=== PATIENT | male | born 1990 | race Caucasian/White ===

== ENCOUNTER 2017-05-28 16:31 | Inpatient (IN) | payer OTHER ==
[~2017-05-28] VITALS: Ht 167.6 cm; Wt 68.0 kg
--- NOTE | 2017-05-28 20:45 | NUR ---
Pre-Admission Patient seen in intake office. Patient does not appear intoxicated but verbalizes feelings of nervousness. He is noted stable to continue with admission assessment. Vital signs rendered and noted to be 126/81, 64, 16, 99%, 98.0, 0/10. Patient verbalizes no known allergies. No home medications noted with patient. Will continue with admission process to unit.
[2017-05-28 21:00] VITALS: BP 126/81
--- NOTE | 2017-05-28 21:00 | NUR ---
Admission Patient is a 46 year old male from [place], [place] admitted to [facility] to receive treatment for his ETOH Dependence. Patient was escorted on to unit by male LOAN ORIGINATOR where body check was rendered. Skin noted intact. Patient is able to provide Urine drug screen upon arrival to unit. Patient verbalizes no known allergies. Height noted as 56 and weight noted as 150lbs. Patient is ambulatory with no assistance needed. Breathing is even and non labored with no signs of SOB. No pain or discomfort verbalized. BUE and BLE noted to be WNL with no edema noted. Lung sounds clear with no cough noted. Bowel sounds are active in all 4 quadrants with LBM noted 05/27/17. Patient verbalizes past medical history of Depression and ADHD. Patient explains "I was diagnosed when I was in the sixth grade and placed on medication but my father was against it so he took me off." No Home medications noted or verbalized by patient. No history of Seizure noted. Patient denies any suicidal ideations. He describes his usage as: 1. ETOH- Vodka, since the age of [age] years old but became dependent 1 year ago, Drinking 3-4 drinks PO daily with last drink noted 05/27/17 drinking 2 beers. Patient states I know I have to stop myself after 3-4 drinks because then its just really bad and I wont stop. 2. Marijuana, x1 use only. Patient states "I knew I was coming here so I smoked but thats because I cant do it while I work. 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 This is patients first time in treatment and is supported by close family and friends. Admission CIWA noted to be 1. All information reviewed with Dr. Patricio Labs to be rendered. PRN medications available for increased signs and symptoms. Will continue plan of care as ordered.
[2017-05-28 21:28] LABS: *AMPHETAMINE, URINE NEGATIVE (NEGATIVE); *BARBITURATE, URINE NEGATIVE (NEGATIVE); *CANNABINOID, URINE POSITIVE (NEGATIVE); *COCCAINE, URINE NEGATIVE (NEGATIVE); *OPIATE, URINE NEGATIVE (NEGATIVE); *PHENCYCLIDINE SCREEN,URINE NEGATIVE (NEGATIVE)
[2017-05-28 21:46] LABS: BASOPHILS # (AUTO) 0.1 K/uL (0.0-8.0); BASOPHILS % (AUTO) 1.3 % (0.0-2.0); EOSINOPHILS # (AUTO) 0.2 K/uL (0.0-0.7); EOSINOPHILS % (AUTO) 2.4 % (0.0-7.0); HEMATOCRIT 51.8 % (40-50); HEMOGLOBIN 17.4 G/DL (14.0-18.0); LYMPHOCYTES # (AUTO) 1.9 K/UL (0.8-4.8); LYMPHOCYTES % (AUTO) 30.1 % (20.5-51.5); MEAN CORPUSCULAR HEMOGLOBIN 32.3 UUG (27.0-31.0); MEAN CORPUSCULAR HGB CONC 34 g/dL (32.0-37.0); MEAN CORPUSCULAR VOLUME 95.8 FL (82.0-92.0); MONOCYTES # (AUTO) 0.6 K/UL (0.1-1.30); MONOCYTES % (AUTO) 10.2 % (0.0-11.0); NEUTROPHILS # (AUTO) 3.5 K/UL (1.8-8.9); PLATELET COUNT (AUTO) 264 K/UL (150-450); RED BLOOD CELL COUNT(AUTO) 5.41 MIL/UL (4.7-6.1); WHITE BLOOD COUNT (AUTO) 6.4 K/UL (4.0-11.2)
[2017-05-28 21:53] LABS: ALANINE AMINOTRANSFERASE 40 U/L (16-63); ALKALINE PHOSPHATASE 71 U/L (50-136); ASPARTATE AMINOTRANSFERASE 25 U/L (15-37); BILIRUBIN,TOTAL 0.7 mg/dL (0.2-1.0); CARBON DIOXIDE 30 mmol/L (21-32); CHLORIDE 104 mmol/L (98-107); CREATININE 0.9 mg/dL (0.6-1.3); ETHANOL < 3 MG/DL (0-0); GLUCOSE 94 mg/dL (74-106); MAGNESIUM 2.3 mg/dL (1.8-2.4); POTASSIUM 4.1 mmol/L (3.5-5.1); TOTAL PROTEIN, SERUM 7.9 g/dL (6.4-8.2); UREA NITROGEN, BLOOD 11 mg/dL (7-18)
--- NOTE | 2017-05-28 22:45 | NUR ---
PRN Medication Administration Patient verbalized inability of falling asleep. PRN Benadryl administered as per order. Will continue to monitor.
--- NOTE | 2017-05-28 23:30 | NUR ---
PRN Medication Reassessment Patient was given PRN Benadryl for in ability of falling asleep. Patient noted to be sleeping in bed with no complications noted. PRN Benadryl noted to be effective. Will continue to monitor.
[2017-05-29] VITALS: BP 113/51
[2017-05-29 04:00] VITALS: BP 112/53
--- NOTE | 2017-05-29 07:06 | NUR ---
End of shift Patient is in bed sleeping. Breathing even and non labored. No signs of pain or discomfort noted. Patient is a 26 year old male admitted on 05/29/17 for ETOH Dependence under the care of Dr. Patricio. Patient was placed on PRN medications for increased signs and symptoms of withdrawal. No known allergies, wishes to be full code, following a regular diet, placed on fall and seizure precautions, and skin noted intact. Admission CIWA noted to be 1. Patient was given PRN Benadryl for inability of falling asleep. Patient noted to sleep a total of 6 hours. All needs attended to promptly. Will endorse to continue plan of care as ordered.
--- NOTE | 2017-05-29 07:30 | NUR ---
START OF SHIFT Client is a 26 yo male admitted for withdrawal from alcohol. Last CIWA 1. Client is in room, a/o x 4, he present with depressed mood, flat affect. Client stated, "I was not able to sleep." Call light within reach, side rails up x2, bed locked and in low position. Endorsed to incoming nurse.
[2017-05-29 08:54] VITALS: BP 122/71
--- NOTE | 2017-05-29 09:30 | NUR ---
Client refused TB test, MD and Charge Nurse notified
[2017-05-29 12:55] VITALS: BP 127/76
[2017-05-29 16:55] VITALS: BP 127/79
--- NOTE | 2017-05-29 19:10 | NUR ---
Start of Shift Patient is in bed awake, alert and verbaly repsonsive. Breathing even and non labored. No signs of pain or discomfort noted. Patient is a 26 year old male admitted on 05/29/17 for ETOH Dependence under the care of Dr. Patricio. No known allergies, full code, following a regular diet, placed on fall and seizure precautions, and skin noted intact. Per endorsement, patient is set for discharge tomorrow 05/30/17. No PRN medications administered. Last noted CIWA 2. All needs attended to promptly. Will continue plan of care as ordered.
--- NOTE | 2017-05-29 19:34 | NUR ---
END OF SHIFT Client is a 26 yo male admitted for withdrawal from alcohol. Last CIWA 2. He is scheduled for discharge tomorrow. Client is in room, a/o x 4, he continues to present with depressed mood, flat affect. Client was compliant with 2/3 of group therapy. Adequate intake and output. Safety measures in place, call light within reach, side rails up x2, bed locked and in low position. Endorsed to incoming nurse.
[2017-05-29 20:22] VITALS: BP 136/86
--- NOTE | 2017-05-29 23:55 | NUR ---
PRN BENADRYL Patient complained of insomnia and requested for PRN Benadryl. Medication given and tolerated well. Will reassess within 1 hour. Will continue to monitor.
[2017-05-30 00:20] VITALS: BP 134/92
--- NOTE | 2017-05-30 00:45 | NUR ---
PRN BENADRYL REASSESSMENT Medication effective. Patient is resting well in bed. No adverse side effects noted, patient's breathing is even and unlabored. Will continue to monitor.
[2017-05-30 04:53] VITALS: BP 124/83
[2017-05-30 06:08] LABS: HEPATITIS B SURFACE AG Negative (Negative)
--- NOTE | 2017-05-30 07:32 | NUR ---
End of Shift Patient is in bed sleeping. Breathing even and non labored. No signs of pain or discomfort noted. Patient is a 26 year old male admitted on 05/29/17 for ETOH Dependence under the care of Dr. Patricio. No known allergies, full code, following a regular diet, placed on fall and seizure precautions, and skin noted intact. Patient is set for discharge today 05/30/17. Patient was given PRN Benadryl for inability of falling asleep with mediations noted to be effective. Patient slept a total of 5 hours. Last noted CIWA 2. All needs attended to promptly. Will endorse to continue plan of care as ordered.
--- NOTE | 2017-05-30 07:33 | NUR ---
Start of Shift Notes: Received patient in his room. Alert, awake, verbally responsive. Able to make his needs known. Respirations even and unlabored. No SOB noted. Skin warm and dry to touch. Abdomen soft and non-distended. BS (+) in all 4 quadrants. No complains of N/V/D or constipation noted. Bladder non-distended. No complains of dysuria noted. Ambulatory ad cesar with steady gait. Voids independently. Patient is a 26 year old male admitted for ETOH dependence who was placed on PRNs. Patient will be discharging today. Prior to admission, patient was using 3-4 drinks of ETOH daily x 8 years. NKA. FULL CODE. Regular diet. Has past medical hx of Depression and ADHD. Educated patient on the discharge process. Patient verbalized good understanding. All needs met and attended. Will continue to monitor closely.
[2017-05-30 08:26] VITALS: BP 106/65
--- NOTE | 2017-05-30 09:00 | NUR ---
MD Communication: Notified Dr. Patricio that patient's RPR result was 1:1. Per MD, he will speak to the patient. NNO made.
--- NOTE | 2017-05-30 10:05 | NUR ---
Discharged: Patient left the unit at this time in stable condition. All clothings belongings and valuables were returned to the patient. Discharge instructions provided and educated. Patient verbalized good understanding. Escorted off the unit by pastry cook helper and picked up by [facility] to be transported to [facility].
== END 2017-05-30 10:05 | disposition other institution (70) | DRG 897 ==
LOC: SRC 20:09
PROVIDERS: ADMIT Internal Medicine; ATTEND Internal Medicine
DX: F10.10 Alcohol abuse, uncomplicated (principal); F32.9 Major depressive disorder, single episode, unspecified; F41.9 Anxiety disorder, unspecified; Y90.9 Presence of alcohol in blood, level not specified; Z81.8 Family history of other mental and behavioral disorders; F17.210 Nicotine dependence, cigarettes, uncomplicated
CPT/HCPCS: 36415; 70030-TC; 80307; 80349; 83735; 85025; 86592; 86705; 86803; 87340; 87806; G0480; Q0163